=== PATIENT | female | born 1950 | race Caucasian/White ===

== ENCOUNTER 2017-04-11 13:29 | Outpatient (CLI) | payer MEDICARE, BC | END 2017-04-11 13:30 | disposition home or self-care (01) | LOC: ULT 13:29 | PROVIDERS: ATTEND Physician Assistant | DX: R06.02 Shortness of breath (principal); I34.0 Nonrheumatic mitral (valve) insufficiency | CPT/HCPCS: 93306 ==

== ENCOUNTER 2018-05-22 15:34 | Outpatient (CLI) | payer MEDICARE, BC | END 2018-05-22 15:35 | disposition home or self-care (01) | LOC: BICMAMMO 15:34 | PROVIDERS: ATTEND Family Medicine | DX: Z12.31 Encounter for screening mammogram for malignant neoplasm of breast (principal); N63.41 Unspecified lump in right breast, subareolar | CPT/HCPCS: 77063; 77067 ==

== ENCOUNTER 2018-06-12 15:11 | Outpatient (CLI) | payer MEDICARE, BC ==
--- NOTE | 2018-06-12 16:32 | ULT ---
SONOGRAM RIGHT BREAST LIMITED: 06/12/18 HISTORY: Right breast mass. FINDINGS: Sonographic evaluation of the 12 o'clock retroareolar position of the right breast shows a rounded 0. 5 cm cystic lesion with small amount of internal debris. There are well defined margins and posterior acoustic enhancement. No solid masses are apparent. IMPRESSION: Slightly complex 5 mm cyst retroareolar 12 o'clock position right breast. This has appeared on recent mammogram, possibly due to 3D tomography. BIRADS 3: Probably Benign Finding Initial Short-Interval Follow-Up Suggested Initial short-term follow up (usually 6-month) examination with sonogram only is suggested to evalua te for stability. Mammogram will not be needed unless there is a change on sonography. POS: [facility]
== END 2018-06-12 15:12 | disposition home or self-care (01) ==
LOC: BICULT 15:11
PROVIDERS: ATTEND Family Medicine
DX: N63.10 Unspecified lump in the right breast, unspecified quadrant (principal); N60.01 Solitary cyst of right breast

== ENCOUNTER 2018-10-19 08:19 | Outpatient (CLI) | payer MEDICARE, BC ==
[2018-10-19] MEDS ORDERED: Gadobenate Dimeglumine 529 MG/1 ML (20ML VIAL) ONE (10:00)
--- NOTE | 2018-10-19 12:04 | MRI ---
MRI BRAIN AND IACS WITH AND WITHOUT IV CONTRAST: Date: 10/19/18 HISTORY: Benign paroxysmal positional vertigo, left. Sudden hearing loss. FINDINGS: No evidence of infarct, hemorrhage, mass, midline shift, or abnormal extra-axial fluid collections ar e seen. The ventricular size is normal and the basilar cisterns are patent. No abnormal postcontrast enhancement is noted. Visualized paranasal sinuses and mastoid air cells are well aerated. No restric rosario diffusion seen. High resolution images through the IACs demonstrate no evidence of mass or abnormal postcontrast enha ncement. IMPRESSION: Normal exam. POS: [facility]
== END 2018-10-19 08:20 | disposition home or self-care (01) ==
LOC: BICMRI 08:19
PROVIDERS: ATTEND Otolaryngology Plastic Surgery within the Head & Neck
DX: H81.12 Benign paroxysmal vertigo, left ear (principal)
CPT/HCPCS: 70553; 82565; A9577

== ENCOUNTER 2019-01-11 13:59 | Outpatient (CLI) | payer MEDICARE, BC ==
--- NOTE | 2019-01-11 15:47 | ULT ---
RIGHT BREAST ULTRASOUND: Date: 01/11/19 COMPARISON: 06/12/18. HISTORY: Retroareolar cystic lesion seen on prior ultrasound. TECHNIQUE: Multiplanar Pelayo scale and color Doppler images were obtained in a targeted ultrasound of the right b reast. FINDINGS: In the retroareolar region of the right breast, there is an anechoic cyst containing internal debris measuring 7 mm in greatest dimension. This demonstrates increased through-transmission. This has not changed significantly compared to the prior examination. IMPRESSION: BI-RADS Category 2 - Benign findings. Annual screening mammography is recommended. The patient is due for annual mammography in May 2019. POS: [facility]
--- NOTE | 2019-01-11 16:09 | BD ---
BONE DENSITOMETRY: Date: 01/11/19 HISTORY: Postmenopausal osteoporosis screening. FINDINGS: Lumbar Spine: BMD (g/cm2) L1 1.210 T-Score: 2.0 L2 1.212 T-Score: 1.7 L3 1.064 T-Score: -0.2 L4 1.264 T-Score: 1.8 Total 1.196 T-Score: 1.4 Left Femoral Neck: 0.678 T-Score: -1.5 Total Femur: 0.762 T-Score: -1.5 IMPRESSION: 1. Bone mineral density of the lumbar spine within normal range. 2. Bone mineral density of the femoral neck indicates osteopenia. 10 YEAR FRACTURE RISK: Major osteoporotic fracture: 15% Hip fracture: 1.7% POS: [facility]
== END 2019-01-11 14:00 | disposition home or self-care (01) ==
LOC: BICULT 13:59
PROVIDERS: ATTEND Family Medicine
DX: M85.852 Other specified disorders of bone density and structure, left thigh (principal); N60.01 Solitary cyst of right breast
CPT/HCPCS: 77080

== ENCOUNTER 2020-02-02 09:18 | Outpatient (CLI) | payer MEDICARE, BC ==
--- NOTE | 2020-02-02 10:37 | MMO ---
Bilateral MAMMO Bilat Screen [id number]. CLINICAL HISTORY: Patient is 69 years old and is seen for screening. The patient has no family history of breast cancer. The patient has no personal history of cancer. VIEWS: The views performed were: bilateral craniocaudal with tomosynthesis and bilateral mediolateral oblique with tomosynthesis. FILMS COMPARED: The present examination has been compared to prior imaging studies performed at [facility] on 03/31/2015, 05/22/2018 and 01/11/2019, and at [facility] on 04/12/2016. This study has been interpreted with the assistance of computer-aided detection. MAMMOGRAM FINDINGS: There are scattered fibroglandular densities. Finding 1: There are stable benign appearing calcifications seen in both breasts. Finding 2: There is a stable round mass measuring 6 millimeters with circumscribed margins seen in the anterior sub-areolar region of the right breast. There are no suspicious masses, suspicious calcifications, or new areas of architectural distortion. IMPRESSION: THERE IS NO MAMMOGRAPHIC EVIDENCE OF MALIGNANCY. A ROUTINE FOLLOW-UP MAMMOGRAM IN 1 YEAR IS RECOMMENDED. THE RESULTS OF THIS EXAM WERE SENT TO THE PATIENT. ACR BI-RADS Category 2 - Benign finding MAMMOGRAPHY NOTE: 1. A negative mammogram report should not delay a biopsy if a dominant of clinically suspicious mass is present. 2. Approximately 10% to 15% of breast cancers are not detected by mammography. 3. Adenosis and dense breasts may obscure an underlying neoplasm. Reported by: DAVIS KEITH MD Electonically Signed: [id number]
== END 2020-02-02 09:19 | disposition home or self-care (01) ==
LOC: BICMAMMO 09:18
PROVIDERS: ATTEND Family Medicine
DX: Z12.31 Encounter for screening mammogram for malignant neoplasm of breast (principal)
CPT/HCPCS: 77063; 77067

== ENCOUNTER 2020-11-23 11:20 | Outpatient (CLI) | payer MEDICARE, BC | END 2020-11-23 11:21 | disposition home or self-care (01) | LOC: BICRAD 11:20 | PROVIDERS: ATTEND Internal Medicine Rheumatology | DX: M13.0 Polyarthritis, unspecified (principal); M79.7 Fibromyalgia; E05.90 Thyrotoxicosis, unspecified without thyrotoxic crisis or storm; M47.812 Spondylosis without myelopathy or radiculopathy, cervical region; M16.11 Unilateral primary osteoarthritis, right hip; M19.042 Primary osteoarthritis, left hand; M19.041 Primary osteoarthritis, right hand | CPT/HCPCS: 72040 ==

== ENCOUNTER 2021-02-20 14:05 | Outpatient (CLI) | payer MEDICARE, BC | END 2021-02-20 14:06 | disposition home or self-care (01) | LOC: BICMAMMO 14:05 | PROVIDERS: ATTEND Family Medicine | DX: Z12.31 Encounter for screening mammogram for malignant neoplasm of breast (principal) | CPT/HCPCS: 77063; 77067 ==

== ENCOUNTER 2021-05-22 12:55 | Outpatient (CLI) | payer MEDICARE, BC | END 2021-05-22 12:56 | disposition home or self-care (01) | LOC: BICRAD 12:55 | PROVIDERS: ATTEND Otolaryngology Plastic Surgery within the Head & Neck | DX: R05.9 Cough, unspecified (principal) | CPT/HCPCS: 71046 ==

== ENCOUNTER 2022-08-30 15:19 | Outpatient (CLI) | payer MEDICARE, BC | END 2022-08-30 15:20 | disposition home or self-care (01) | LOC: BICRAD 15:19 | PROVIDERS: ATTEND Internal Medicine Rheumatology | DX: M19.011 Primary osteoarthritis, right shoulder (principal); M77.8 Other enthesopathies, not elsewhere classified; Z98.890 Other specified postprocedural states ==

== ENCOUNTER 2023-05-08 14:02 | Outpatient (CLI) | payer MEDICARE, BC | END 2023-05-08 14:03 | disposition home or self-care (01) | LOC: BICMAMMO 14:02 | PROVIDERS: ATTEND Family Medicine | DX: Z12.31 Encounter for screening mammogram for malignant neoplasm of breast (principal) | CPT/HCPCS: 77063; 77067 ==

== ENCOUNTER 2024-05-25 08:23 | Outpatient (CLI) | payer MEDICARE | END 2024-05-25 08:24 | disposition home or self-care (01) | LOC: BICMAMMO 08:23 | PROVIDERS: ATTEND Family Medicine | DX: Z12.31 Encounter for screening mammogram for malignant neoplasm of breast (principal); Z80.3 Family history of malignant neoplasm of breast | CPT/HCPCS: 77063; 77067 ==